=== PATIENT | female | born 1955 | race Caucasian/White ===

== ENCOUNTER 2022-01-24 09:42 | Emergency (ER) | payer OTHER ==
--- OUTSIDE RECORDS SUMMARY | 2022-01-24 09:46 | XMS REPORT | Continuity of Care Document ---
:1955 Author Organization [facility] t Address [address] [place] [address] Care Team Providers Name Role Phone UNKNOWN Attending Clinician Unavailable Claribel SIPHONER, J Attending Clinician Unknown Attending Clinician Unavailable Lab, Fam Pob I Attending Clinician Unavailable Green SIPHONER Attending Clinician GREEN Attending Clinician Unavailable Doctor Unassigned, Name Attending Clinician Unavailable Payers Payer Name Policy Type Policy Number Effective Date Expiration Date S ourrenetta [facility] - [id number] 2020 00:00:00 OUT OF STATE Problems Condition Condition Condition Status Onset Resolution Last Treating Co mments Source Name Details Category Date Date Treatment Clinician Date No known No known Disease Unive rs active active ity of problems problems [facility] Allergies, Adverse Reactions, Alerts Allergy Allergy Status Severity Reaction(s) Onset Inactive Treating Comm ents Source Name Type Date Date Clinician HYDROCOD DRUG Active High Hallucinates Un kelly ONE INGREDI 11-24 ity of 00:00: [place] [address] [place] [address] Branch Hydrocod Propensi Active Hallucinatio Univers one ty to ns 11-24 ity of adverse 00:00: [place] reaction 00 Medical s to Branch drug NO KNOWN Drug Active Univers ALLERGIE Class ity of S [facility] Social History Social Habit Start Date Stop Date Quantity Comments Source Exposure to Yes [facility] SARS-CoV-2 [facility] (event) Branch Sex Assigned At Universit y of [facility] Tobacco use and 2020-11-24 2020-11-24 Never used Universit y of exposure 00:00:00 00:00:00 [facility] Alcohol intake 2020-11-24 2020-11-24 Current drinker Unive rsity of 00:00:00 00:00:00 of alcohol [facility] (finding) Branch History SDOH 2020-11-24 2020-11-24 2 University o f Alcohol Frequency 00:00:00 00:00:00 [place] [facility] History SDOH 2020-11-24 2020-11-24 1 [place] o f Alcohol Std 00:00:00 00:00:00 [place] [facility] Branch History SDOH 2020-11-24 2020-11-24 1 [place] o f Alcohol Binge 00:00:00 00:00:00 [place] [facility] Branch Smoking Status Start Date Stop Date Source Unknown if ever smoked [facility] Never smoker [facility] Medications Ordered Filled Start Stop Current Ordering Indication Dosage Frequency Signature Comments Components Source Medication Medication Date Date Medication? Clinician (SIG) Name Name No known No Univers medications [facility] Vital Signs Vital Name Observation Time Observation Value Comments Source Systolic blood 2020-11-25 00:07:00 137 mm[Hg[facility] Diastolic blood 2020-11-25 00:07:00 85 mm[Hg] [facility] Heart rate 2020-11-25 00:07:00 78 /min [facility] Body temperature 2020-11-25 00:07:00 36.33 Yuli [facility] Respiratory rate 2020-11-25 00:07:00 15 /min [facility] Body height 2020-11-25 00:07:00 162.6 cm [facility] Body weight 2020-11-25 00:07:00 63.504 kg [facility] BMI 2020-11-25 00:07:00 24.03 kg/m2 [facility] Oxygen saturation in 2020-11-25 00:07:00 96 /min [facility] Arterial blood by [facility] Pulse oximetry Branch Procedures This patient has no known procedures. Encounters Start End Encounter Admission Attending Care Care Encounter Source Date/Time Date/Time Type Type Clinicians Facility Department ID 2020-11-24 2020-11-24 Outpatient R [facility] [id number] Univers 19:00:00 19:00:00 [id number] [facility] 2020-11-24 2020-11-24 Outpatient R UNKNOWN, [facility] [id number] Univers 19:00:00 19:00:00 ATTENDING [facility] 2020-11-24 2020-11-24 Urgent Teresa Sanford [facility] [id number] Univers 17:59:51 18:32:55 Care Unknown, Attending Health [id number] ity of [place] [id number] [place] as Professio [phone] [address] Office [address] One 2020-11-06 2020-11-06 Laboratory Lab, Adc Fam Pob I [facility] [id number]. [id number] Univers 11:42:51 12:22:51 Only Laura Ashley [facility] [id number] ity of [place] [id number] [place] as Professio [phone] [facility] [address] One 2020-11-06 2020-11-06 Outpatient R LONI [facility] [id number] Univers 11:40:00 11:40:00 LAURA ity of [facility] 2020-11-06 2020-11-06 Letter Doctor VIJAY [id number] Univers 00:00:00 00:00:00 (Out) Unassigned, NICO [id number] ity of [place] [facility] [id number] [place] as [phone] [address] Results This patient has no known results.
[2022-01-24] MEDS ORDERED: BUPIVACAINE 0.5% PF 10 ML VIAL ONE (10:34)
[2022-01-24] MEDS ORDERED: TETANUS & DIPHTHERIA TOX,ADULT 0.5 ML VIAL ONE (10:35)
[2022-01-24] MEDS ORDERED: LIDOCAINE 1% MPF 2 ML AMPULE ONE (10:35)
[2022-01-24] MEDS ORDERED: AMOX/K CLAV 875 MG TAB ONE (11:48)
--- NOTE | 2022-01-24 11:52 | EDPHYS ---
Physician Documentation [facility] Name: Rosie Hairston Age: 66 yrs Sex: Female : 1955 Arrival Date: 01/24/2022 Time: 09:44 Bed 18 Private MD: Rachelle Arias H ED Physician Christiano John HPI: 01/24 10:19 This 66 yrs old Female presents to ER via Ambulatory with complaints of Dog Bite, Lip jmm Injury. 10:19 The patient was bitten on the upper deric border. Onset: The symptoms/episode jmm began/occurred acutely, just prior to arrival. Secondary to the bite the patient reports This is a 66-year-old female no chronic medical conditions presents emerged part with a upper lip laceration which occurred after playing with her pet dog. Patient states that the dog snapped at her biting her upper lip. Denies any other injury. Patient is not up-to-date on tetanus immunizations.. Historical: - Allergies: 10:08 Codeine; ll1 - PMHx: 10:08 None; ll1 - PSHx: 10:08 section; ll1 - Immunization history:: Last tetanus immunization: < 10 years ago. - Social history:: Smoking status: Patient denies any tobacco usage or history of. ROS: 10:19 Constitutional: Negative for fever, chills, and weight loss, Cardiovascular: Negative jmm for chest pain, palpitations, and edema, Respiratory: Negative for shortness of breath, cough, wheezing, and pleuritic chest pain. 10:19 Skin: Positive for laceration(s). 10:19 All other systems are negative. Exam: 10:19 Constitutional: This is a well developed, well nourished patient who is awake, alert, jmm and in no acute distress. Head/Face: atraumatic. Eyes: EOMI, no conjunctival erythema appreciated ENT: Moist Mucus Membranes Neck: Trachea midline, Supple Chest/axilla: Normal chest wall appearance and motion. Cardiovascular: Regular rate and rhythm. No edema appreciated Respiratory: Normal respirations, no respiratory distress appreciated Abdomen/GI: Non distended, soft Back: Normal ROM 10:19 Skin: 0.5 cm laceration noted to the upper lip, crosses the vermilion border. 10:19 Neuro: Orientation: is normal, Mentation: is normal, Memory: is normal. 10:19 Psych: Behavior/mood is pleasant, cooperative. Vital Signs: 09:55 BP 144 / 78; Pulse 73; Resp 17; Temp 98.4; Pulse Ox 96% on R/A; Weight 68.49 kg; Height ll1 5 ft. 4 in. (162.56 cm); Pain 4/10; 12:04 BP 135 / 75; Pulse 81; Resp 17; Temp 98.5; Pulse Ox 97% ; bp 09:55 Body Mass Index 25.92 (68.49 kg, 162.56 cm) ll1 Laceration: 11:49 Wound Repair of .5cm ( 0.2in ) subcutaneous laceration to upper deric border. jmm Distal neuro/vascular/tendon intact. Anesthesia: Regional Block with 3 mls of 0.5% marcaine. Wound prep: Simple cleansing with betadine by me. Skin closed with 6 6-0 Prolene using simple sutures and sterile technique. Patient tolerated well. MDM: 10:19 Patient medically screened. [facility] 11:49 Data reviewed: vital signs, nurses notes. Counseling: I had a detailed discussion with ronnie the patient and/or guardian regarding: the historical points, exam findings, and any diagnostic results supporting the discharge/admit diagnosis, the need for outpatient follow up, to return to the emergency department if symptoms worsen or persist or if there are any questions or concerns that arise at home. ED course: Patient is alert nontoxic in appearance in the ED. Patient given wound infection return precautions. Patient understood agrees plan of care.. 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 Exp: bp 03/24/2023. Lot #: [id number]. } Route: IM; Site: left deltoid; 11:43 Follow up: Response: No adverse reaction bp 11:50 Drug: Augmentin (Amoxicillin-Clavulanate) 875 mg Route: PO; bp 12:04 Follow up: Response: No adverse reaction bp Disposition Summary: 01/24/22 11:51 Discharge Ordered Location: Home [facility] Condition: Stable jm Diagnosis - Dog bite of the upper lip [facility] Followup: [facility] - With: Camron Sewell MD - When: 2 - 3 days - Reason: Recheck today's complaints, Continuance of care, Re-evaluation by your physician Followup: [facility] - With: Camron Sewell MD - When: 5 - 6 days - Reason: Recheck today's complaints, Continuance of care, Staple/Suture removal, Re-evaluation by your physician Discharge Instructions: - Discharge Summary Sheet [facility] - Facial Laceration [facility] - Animal Bite, Adult [facility] Forms: - Medication Reconciliation Form [facility] - Thank You Letter [facility] - Antibiotic Education [facility] - Prescription Opioid Use [facility] Prescriptions: - Augmentin 875-125 mg Oral Tablet - take 1 tablet by ORAL route every 12 hours for 10 days; 20 tablet; Refills: 0, [facility] Product Selection Permitted - Polysporin (bacitracin zinc) - Apply to affected area 1 application by TOPICAL route 1-2 times daily; 1 tube; [facility] Refills: 0, Product Selection Permitted Addendum: 01/26/2022 05:29 Co-signature as Attending Physician, Christiano John MD I agree with the assessment and c travis plan of care. Signatures: Christiano John MD MD cha Mickail, Joel, PA PA [facility] Radames Sorto, MARY ALICE RN Brett Negrete RN RN ll1 Corrections: (The following items were deleted from the chart) 01/24 10:10 10:08 Allergies: No Known Allergies; ll1 ll1
--- NOTE | 2022-01-24 11:52 | ER ---
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 small ll1 lacerations noted to upper lip, bleeding controlled. Patients own dog she has had for over 6 years. Coronavirus screen: Vaccine status: Patient reports being unvaccinated. Client denies travel out of the [place] in the last 14 days. At this time, the client does not indicate any symptoms associated with coronavirus-19. Ebola Screen: Patient denies travel to an Ebola-affected area in the 21 days before illness onset. Initial Sepsis Screen: Does the patient meet any 2 criteria? No. Patient's initial sepsis screen is negative. Does the patient have a suspected source of infection? Yes: Skin breakdown/wound. Risk Assessment: Do you want to hurt yourself or someone else? Patient reports no desire to harm self or others. Onset of symptoms was January 24, 2022. 09:55 Method Of Arrival: Ambulatory 1 09:55 Acuity: KATHRYN 4 ll1 Triage Assessment: 10:10 Bite description: bite sustained to nose and mouth by a dog, animal information: ll1 Appearance: appeared well, is from animal, vaccination(s) is not up to date. General: Appears uncomfortable, Behavior is calm, cooperative, appropriate for age. Pain: Complains of pain in face Quality of pain is described as aching. EENT: Reports pain in nose and mouth. Derm: Wound noted mouth Reports pain. Historical: - Allergies: 10:08 Codeine; ll1 - PMHx: 10:08 None; ll1 - PSHx: 10:08 section; ll1 - Immunization history:: Last tetanus immunization: < 10 years ago. - Social history:: Smoking status: Patient denies any tobacco usage or history of. Screenin:15 Abuse screen: Denies threats or abuse. Denies injuries from another. Nutritional bp screening: No deficits noted. Tuberculosis screening: No symptoms or risk factors identified. Fall Risk None identified. Assessment: 10:15 General: SEE TRIAGE NOTE. bp 11:00 Derm: Skin is intact, is healthy with good turgor, Skin is pink, warm \T\ dry. bp 11:53 Reassessment: PT D/C HOME S/P DOG BITE WITH LAC REPAIR. bp Vital Signs: 09:55 BP 144 / 78; Pulse 73; Resp 17; Temp 98.4; Pulse Ox 96% on R/A; Weight 68.49 kg; Height ll1 5 ft. 4 in. (162.56 cm); Pain 4/10; 12:04 BP 135 / 75; Pulse 81; Resp 17; Temp 98.5; Pulse Ox 97% ; bp 09:55 Body Mass Index 25.92 (68.49 kg, 162.56 cm) ll1 ED Course: 09:44 Patient arrived in ED. am2 09:44 Rachelle Arias DO is Private Physician. am2 09:50 Arm band placed on Patient placed in an exam room, on a stretcher. ll1 10:01 Radames Sorto, MARY ALICE is Primary Nurse. bp 10:05 Juan Wen PA is PHCP. jmm 10:05 Christiano John MD is Attending Physician. [facility] 10:08 Triage completed. ll1 10:15 Patient has correct armband on for positive identification. Bed in low position. Call bp light in reach. Side rails up X2. 11:51 Camron Sewell MD is Referral Physician. [facility] 11:51 Referral Physician role handed off by Camron Sewell MD [facility] 11:51 Camron Sewell MD is Referral Physician. [facility] 11:52 Wound care: to laceration located on mouth was dressed with Neosporin, Patient bp tolerated well. 11:53 No provider procedures requiring assistance completed. Patient did not have IV access bp during this emergency room visit. 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 Exp: bp 03/24/2023. Lot #: [id number]. } Route: IM; Site: left deltoid; 11:43 Follow up: Response: No adverse reaction bp 11:50 Drug: Augmentin (Amoxicillin-Clavulanate) 875 mg Route: PO; bp 12:04 Follow up: Response: No adverse reaction bp Outcome: 11:51 Discharge ordered by . ronnie 11:53 Discharged to home ambulatory, with family. bp 11:53 Condition: stable 11:53 Discharge instructions given to patient, Instructed on discharge instructions, follow up and referral plans. medication usage, wound care, Demonstrated understanding of instructions, follow-up care, medications, wound care, Prescriptions given X 1. 12:05 Patient left the ED. 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 ll1 small lacerations noted to upper lip, bleeding controlled. Patients own dog she has had for over 6 years. States dog is not up to date with immunizations. ll1 10:10 10:08 Allergies: No Known Allergies; ll1 ll1
[2022-01-24 12:11] VITALS: BP 135/75; TEMP 98.5; O2SAT 97
== END 2022-01-24 12:05 | disposition home or self-care (01) ==
LOC: ER 09:42
PROC: 0CQ0XZZ Repair Upper Lip, External Approach (ICD-10-PCS; principal; 2022-01-24)
DX: S01.511A Laceration without foreign body of lip, initial encounter (principal); W54.0XXA Bitten by dog, initial encounter; Z23 Encounter for immunization; Z88.5 Allergy status to narcotic agent
CPT/HCPCS: 90471; 90714; 99283

== ENCOUNTER 2022-04-22 15:13 | Emergency (ER) | payer OTHER ==
[2022-04-22] MEDS ORDERED: NA CHLORIDE 0.9% 1,000 ML ONE (15:37)
[2022-04-22 15:55] LABS: Hematocrit 46.2 % (36.0-45.0); Lymphocytes % 41.8 % (15.3-44.8); MPV 8.1 fL (7.6-11.3); RBC Red Blood Cell Count 5.18 M/uL (3.86-4.86)
--- NOTE | 2022-04-22 16:05 | RAD REPORT ---
EXAM DESCRIPTION: RAD - Chest Single View - 04/22/2022 3:59 pm CLINICAL HISTORY: CHEST PAIN COMPARISON: No comparisons FINDINGS: Lines: None. Lungs: No evidence of edema or pneumonia. Pleural: No significant pleural effusions or pneumothorax. Cardiac: The heart size is within normal limits. Bones: No acute fractures. Other: IMPRESSION: No acute cardiopulmonary disease.
[2022-04-22 16:07] LABS: Protime INR 0.9
--- NOTE | 2022-04-22 16:15 | RAD REPORT ---
EXAM DESCRIPTION: CT - Head Brain Wo Cont - 04/22/2022 4:05 pm CLINICAL HISTORY: Generalized weakness COMPARISON: No comparisons TECHNIQUE: All CT scans are performed using dose optimization technique as appropriate and may inclu de automated exposure control or mA/KV adjustment according to patient size. FINDINGS: No intracranial hemorrhage, hydrocephalus or extra-axial fluid collection.No areas of brai n edema or evidence of midline shift. The paranasal sinuses and mastoids are clear. The calvarium is intact. IMPRESSION: No acute intracranial abnormality.
[2022-04-22 16:28] LABS: ALT/SGPT 39 U/L (12-78); AST/SGOT 18 U/L (15-37); Albumin 4.3 g/dL (3.4-5.0); Alkaline Phosphatase 61 U/L (45-117); BUN Blood Urea Nitrogen 12 mg/dL (7-18); Bicarbonate 22 mmol/L (21-32); Bilirubin Total 0.3 mg/dL (0.2-1.0); Creatine Phosphokinase 173 U/L (26-192); Glomerular Filtration Rate 49 ml/min (=/>90); Glucose Level 105 mg/dL (74-106); Magnesium 2.4 mg/dL (1.8-2.4); NT PRO-BNP 103 pg/mL (<125); Potassium 3.5 mmol/L (3.5-5.1); Protein, Total 8.6 g/dL (6.4-8.2); Sodium Level 140 mmol/L (136-145); Troponin High Sensitivity 4.8 pg/mL (<58.9)
[2022-04-22 16:29] LABS: Bilirubin Direct < 0.1 mg/dL (0-0.2)
[2022-04-22 17:08] LABS: Urine Blood Trace-intact (Negative); Urine Glucose Negative (Negative); Urine Protein Negative (Negative); Urine pH 7.5 (5.0-7.0)
[2022-04-22 17:25] LABS: Barbiturates NEGATIVE (NEGATIVE); Benzodiazepines NEGATIVE (NEGATIVE); Cocaine NEGATIVE (NEGATIVE); METHAMPHETAM NEGATIVE (NEGATIVE); Methadone NEGATIVE (NEGATIVE); Opiates NEGATIVE (NEGATIVE); Phencyclidine NEGATIVE (NEGATIVE); THC Cannibis NEGATIVE (NEGATIVE)
--- NOTE | 2022-04-22 18:18 | ER ---
Nurse's Notes [facility] Name: Rosie Hairston Age: 66 yrs Sex: Female : 1955 Arrival Date: 04/22/2022 Time: 15:14 Bed 4 Private MD: Rachelle Arias H Diagnosis: Dehydration;Acute stress reaction Presentation: 04/22 15:24 Onset of symptoms was April 21, 2022. 9 15:24 Acuity: KATHRYN 3 [facility] 15:25 Chief complaint: Patient states: Weak, shaky, slumping over in chair, hyperventilating. jg9 [place] moving [place] and has been packing and moving recently with added emotional stress. Coronavirus screen: Vaccine status: Patient reports being unvaccinated. Client denies travel out of the [place] in the last 14 days. At this time, the client does not indicate any symptoms associated with coronavirus-19. Ebola Screen: Patient denies travel to an Ebola-affected area in the 21 days before illness onset. Initial Sepsis Screen: Does the patient meet any 2 criteria? No. Patient's initial sepsis screen is negative. Does the patient have a suspected source of infection? No. Patient's initial sepsis screen is negative. Risk Assessment: Do you want to hurt yourself or someone else? Patient reports no desire to harm self or others. 15:25 Method Of Arrival: Wheelchair j9 Historical: - Allergies: 15:24 Codeine; jg9 - PMHx: 15:24 None; jg9 - PSHx: 15:24 section; jg9 - Immunization history:: Client reports having NOT received the Covid vaccine. - Social history:: Smoking status: Patient reports the use of cigarette tobacco products, smokes one-half pack cigarettes per day. Screenin:29 Abuse screen: Denies threats or abuse. Denies injuries from another. Nutritional travis screening: No deficits noted. Tuberculosis screening: No symptoms or risk factors identified. Fall Risk None identified. Assessment: 15:28 General: Appears distressed, Behavior is anxious. Pain: Denies pain. Neuro: No deficits travis noted. Level of Consciousness is awake, alert, obeys commands, Oriented to person, place, time. Derm: Skin is pink, Skin temperature is warm. Vital Signs: 15:25 BP 164 / 79; Pulse 104; Resp 26; Temp 97.7; Pulse Ox 98% on R/A; Weight 65.77 kg; jg9 Height 5 ft. 4 in. (162.56 cm); 16:43 BP 106 / 51; Pulse 79; Resp 17; Pulse Ox 97% ; travis 15:25 Body Mass Index 24.89 (65.77 kg, 162.56 cm) j9 ED Course: 15:14 Patient arrived in ED. as 15:15 Rachelle Arias DO is Private Physician. as 15:16 [facility] Cummins [facility] pm1 15:16 Caio Hernandes MD is Attending Physician. pm1 15:24 Arm band placed on Patient placed in an exam room, on a stretcher. jg9 15:24 Inserted saline lock: 20 gauge in right antecubital area, using aseptic technique. ss Patient maintains SpO2 saturation greater than 95% on room air. 15:25 Triage completed. jg9 15:28 Yessi García, MARY ALICE is Primary Nurse. travis 15:29 Patient has correct armband on for positive identification. Bed in low position. travis 15:29 No provider procedures requiring assistance completed. travis 16:01 XRAY Chest (1 view) In Process Unspecified. EDMS 16:06 CT Head Brain wo Cont In Process Unspecified. EDMS 18:53 IV discontinued, intact, Pressure dressing applied. travis Administered Medications: 15:34 Drug: NS 0.9% 1000 ml Route: IV; Rate: 1000 ml; Site: right antecubital; Medication: 15:30 VIS not applicable for this client. travis Outcome: 18:17 Discharge ordered by . pm1 18:53 Discharged to home ambulatory, with family. travis 18:53 Condition: good 18:53 Discharge instructions given to patient, family. 18:53 Patient left the ED. travis Signatures: Dispatcher [employer] EDMS Clarissa Iverson Shelby, RN RN ss Junior Cummins NP BROADCAST PRODUCER pm1 Leslie Painter RN RN jg9 Yessi García RN RN travis
--- NOTE | 2022-04-22 18:18 | EDPHYS ---
Physician Documentation [facility] Name: Rosie Hairston Age: 66 yrs Sex: Female : 1955 Arrival Date: 04/22/2022 Time: 15:14 Bed 4 Private MD: Rachelle Arias H ED Physician Caio Hernandes HPI: 04/22 15:38 This 66 yrs old Female presents to ER via Wheelchair with complaints of Heat Exposure, pm1 Anxiety. 15:38 Possible heat exposure and anxiety due to moving from [place] after the [employer] pm1 bought her house to create a freeway. Onset: The symptoms/episode began/occurred today. Severity of symptoms: in the emergency department the symptoms are worse. The patient has not experienced similar symptoms in the past. The patient has not recently seen a physician. 66-year-old patient presents to the ER with complaints of anxiety and possible heat exposure from her move from [place] to [place]. Patient reports working on packing her home for the past [address] here on . Significant other reports that she has been exhausted since arriving here on , slept the whole day and then woke up and then slept 22 hours straight, waking up today fine but then started having general complaints of anxiety and generalized weakness. Historical: - Allergies: 15:24 Codeine; jg9 - PMHx: 15:24 None; jg9 - PSHx: 15:24 section; jg9 - Immunization history:: Client reports having NOT received the Covid vaccine. - Social history:: Smoking status: Patient reports the use of cigarette tobacco products, smokes one-half pack cigarettes per day. ROS: 15:38 Constitutional: Negative for fever, chills, and weight loss, Cardiovascular: Negative pm1 for chest pain, palpitations, and edema, Respiratory: Negative for shortness of breath, cough, wheezing, and pleuritic chest pain, Abdomen/GI: Negative for abdominal pain, nausea, vomiting, diarrhea, and constipation, Back: Negative for injury and pain, MS/Extremity: Negative for injury and deformity, Skin: Negative for injury, rash, and discoloration. 15:38 Neuro: Positive for weakness. 15:38 Psych: Positive for anxiety. 15:38 All other systems are negative. Exam: 15:38 Constitutional: This is a well developed, well nourished patient who is awake, alert, pm1 and in no acute distress. Head/Face: Normocephalic, atraumatic. 15:38 Back: No spinal tenderness. No costovertebral tenderness. Full range of motion. Skin: Warm, dry with normal turgor. Normal color with no rashes, no lesions, and no evidence of cellulitis. MS/ Extremity: Pulses equal, no cyanosis. Neurovascular intact. Full, normal range of motion. 15:38 Eyes: Exam is negative for acute changes, Periorbital structures: appear normal, Extraocular movements: no acute changes. 15:38 ENT: Exam is negative for acute changes, Mouth: no acute changes, Lips: normal, moist, Oral mucosa: normal, pink and intact, moist. 15:38 Cardiovascular: Exam negative for acute changes, Rate: normal, Rhythm: regular, Pulses: no pulse deficits are appreciated, Heart sounds: normal. 15:38 Respiratory: Exam negative for acute changes, respiratory distress, shortness of breath. 15:38 Abdomen/GI: Inspection: abdomen appears normal, Palpation: abdomen is soft and non-tender, in all quadrants. 15:38 Neuro: Exam negative for acute changes, Motor: is normal, moves all fours. Vital Signs: 15:25 BP 164 / 79; Pulse 104; Resp 26; Temp 97.7; Pulse Ox 98% on R/A; Weight 65.77 kg; jg9 Height 5 ft. 4 in. (162.56 cm); 16:43 BP 106 / 51; Pulse 79; Resp 17; Pulse Ox 97% ; travis 15:25 Body Mass Index 24.89 (65.77 kg, 162.56 cm) jg9 MDM: 15:25 Patient medically screened. pm1 15:58 ED course: Patient calmed down but with hyperventilation episode with discussion of her pm1 move from [place] leaving baby clothing behind since her children did not want them. 18:15 Data reviewed: vital signs. Data interpreted: Pulse oximetry: on room air is 97 %. pm1 Interpretation: normal. 18:15 Counseling: I had a detailed discussion with the patient and/or guardian regarding: the pm1 historical points, exam findings, and any diagnostic results supporting the discharge/admit diagnosis, lab results, radiology results, the need for outpatient follow up, to return to the emergency department if symptoms worsen or persist or if there are any questions or concerns that arise at home, Patient felling better and would like to go home. Patient feels better after IV fluids. Impression is mild dehydration with acute stress reaction. 04/22 15:26 Order name: Basic Metabolic Panel 04/22 15:26 Order name: CBC with Diff; Complete Time: 15:59 pm04/22 15:26 Order name: LFT's 04/22 15:26 Order name: Magnesium 04/22 15:26 Order name: NT PRO-BNP 04/22 15:26 Order name: PT-INR; Complete Time: 16:18 pm04/22 15:26 Order name: Troponin HS 04/22 15:26 Order name: Acetaminophen 04/22 15:26 Order name: ETOH Level; Complete Time: 16:40 pm04/22 15:26 Order name: Ptt, Activated; Complete Time: 16:18 pm04/22 15:26 Order name: Salicylate; Complete Time: 16:40 pm04/22 15:26 Order name: Urine Drug Screen; Complete Time: 17:36 pm04/22 15:26 Order name: CPK 04/22 15:36 Order name: Glucose, Ancillary Testing; Complete Time: 15:38 EDMS 04/22 15:26 Order name: XRAY Chest (1 view); Complete Time: 16:18 pm04/22 15:26 Order name: EKG; Complete Time: 15:27 pm04/22 15:26 Order name: Cardiac monitoring; Complete Time: 15:41 pm04/22 15:26 Order name: EKG - Nurse/Tech; Complete Time: 15:55 pm04/22 15:26 Order name: IV Saline Lock; Complete Time: 15:29 pm04/22 15:26 Order name: Labs collected and sent; Complete Time: 15:29 pm04/22 15:26 Order name: O2 Per Protocol; Complete Time: 15:29 pm04/22 15:26 Order name: O2 Sat Monitoring; Complete Time: 15:29 pm04/22 15:26 Order name: Urine Dipstick-Ancillary (obtain specimen); Complete Time: 17:07 pm1 04/22 15:42 Order name: CT Head Brain wo Cont; Complete Time: 16:18 pm1 04/22 17:09 Order name: Urine Dipstick-Ancillary; Complete Time: 17:16 EDMS Administered Medications: 15:34 Drug: NS 0.9% 1000 ml Route: IV; Rate: 1000 ml; Site: right antecubital; Disposition Summary: 04/22/22 18:17 Discharge Ordered Location: Home pm1 Problem: new pm1 Symptoms: have improved pm1 Condition: Stable pm1 Diagnosis - Dehydration pm1 - Acute stress reaction pm1 Followup: pm1 - With: Emergency Department - When: As needed - Reason: Worsening of condition Followup: pm1 - With: Private Physician - When: 2 - 3 days - Reason: Recheck today's complaints, Continuance of care, Re-evaluation by your physician Discharge Instructions: - Discharge Summary Sheet pm1 - Dehydration, Adult pm1 - Stress, Adult pm1 - Rehydration, Adult pm1 Forms: - Medication Reconciliation Form pm1 - Thank You Letter pm1 - Antibiotic Education pm1 - Prescription Opioid Use pm1 Signatures: Dispatcher [employer] EDMS Fernanda Baker, RN RN ss Junior Cummins, [employer] pm1 Leslie Painter RN RN jg9
[2022-04-22 19:19] VITALS: TEMP 97.7
[2022-04-22 19:21] VITALS: BP 106/51; O2SAT 97
--- NOTE | 2022-04-23 11:51 | EKG ---
Test Date: 2022-04-22 Test Time: 15:47:28 Flash Drier Operator: ANGEL MEASUREMENT RESULTS: Intervals: Rate: 77 [place]: 158 QRSD: 130 QT: 430 QTc: 486 [place]: P: 43 [place]: 158 QRS: -20 T: 98 INTERPRETIVE STATEMENTS: Normal sinus rhythm Left bundle branch block Abnormal ECG No previous ECG available for comparison Electronically Signed On 04-23-22 11:50:10 CDT by Brett Steiner
== END 2022-04-22 18:53 | disposition home or self-care (01) ==
LOC: ER 15:13
DX: F43.0 Acute stress reaction (principal); E86.0 Dehydration; F17.210 Nicotine dependence, cigarettes, uncomplicated; Z88.5 Allergy status to narcotic agent
CPT/HCPCS: 93005; 85025; 80048; 36415; 80320; 83735; 82550; 80329 ×2; 85610; 82947; 80076; 85730; 81003; 84484; 83880; 80307; 70450; 71045; J7030

== ENCOUNTER 2023-07-08 11:55 | Observation (INO) | payer OTHER ==
[2023-07-08] MEDS ORDERED: NA CHLORIDE 0.9% 2,000 ML ONE (12:27)
[2023-07-08] MEDS ORDERED: METOCLOPRAMIDE 10 MG/2mL INJ ONE (12:27)
[2023-07-08 12:38] LABS: Hematocrit 41.4 % (36.0-45.0); MCV 89.9 fL (80-100); MPV 7.2 fL (7.6-11.3); Platelets 294 thou/uL (152-406)
[2023-07-08 12:39] LABS: Absolute Lymphocytes (CBC) 1.8 K/uL (0.7-4.9); Lymphocytes % 34.9 % (15.3-44.8)
[2023-07-08 12:41] LABS: Protime INR 0.95
--- NOTE | 2023-07-08 12:42 | RAD REPORT ---
EXAM DESCRIPTION: CT - Head Brain Wo Cont - 07/08/2023 12:16 pm CLINICAL HISTORY: Syncope COMPARISON: 2021 TECHNIQUE: Computed axial tomography of the head was obtained. IV contrast was not requested. All CT scans are performed using dose optimization technique as appropriate and may include automated exposure control or mA/KV adjustment according to patient size. FINDINGS: An intracranial bleed is not seen The ventricles are normal in caliber No extra-axial fluid collection is noted. Mild low-density areas within periventricular, deep and subcortical white matter likely represent isc hemic changes secondary to small vessel disease. Empty sella turcica Fluid within the sinuses/ mastoids is not seen. IMPRESSION: No acute intracranial abnormality is seen If patient's symptoms persist MRI of the brain would be recommended
--- NOTE | 2023-07-08 12:47 | RAD REPORT ---
EXAM DESCRIPTION: Bob Single View07/08/2023 12:30 pm CLINICAL HISTORY: Chest pain COMPARISON: 2021 FINDINGS: The lungs appear clear of acute infiltrate. The heart is normal size IMPRESSION: No acute abnormalities displayed
[2023-07-08 13:03] LABS: ALT/SGPT 31 U/L (13-56); AST/SGOT 17 U/L (15-37); Albumin 3.8 g/dL (3.4-5.0); Alkaline Phosphatase 60 U/L (45-117); BUN Blood Urea Nitrogen 12 mg/dL (7-18); Bicarbonate 20 mEq/L (21-32); Bilirubin Direct 0.1 mg/dL (0-0.2); Bilirubin Indirect, Calculated 0.2 mg/dL (0.2-0.8); Bilirubin Total 0.3 mg/dL (0.2-1.0); Glomerular Filtration Rate 52 ml/min (=/>90); Glucose Level 111 mg/dL (74-106); Magnesium 2.1 mg/dL (1.6-2.4); NT PRO-BNP 42 pg/mL (<125); Potassium 3.4 mEq/L (3.5-5.1); Protein, Total 7.4 g/dL (6.4-8.2); Sodium Level 140 mEq/L (136-145)
[2023-07-08 13:04] LABS: C-Reactive Protein < 2.90 mg/L (<3.00)
[2023-07-08 14:21] LABS: Specific Gravity < 1.005 (1.005-1.030); Urine Bacteria None Seen /HPF (<20); Urine Bilirubin NEGATIVE (Negative); Urine Blood Negative (Negative); Urine Clarity Turbid (Clear); Urine Color Colorless (Yellow); Urine Glucose NEGATIVE (Negative); Urine Protein NEGATIVE (Negative); Urine RBC <5 /HPF (None Seen); Urine Urobilinogen Normal (Normal)
--- NOTE | 2023-07-08 14:32 | EDPHYS ---
Physician Documentation [facility] [place] Name: Rosie Hairston Age: 68 yrs Sex: Female : 1955 Arrival Date: 07/08/2023 Time: 11:55 Bed 6 Private MD: ED Physician Jose Alejandro Palacios HPI: 07/08 12:04 This 68 yrs old Female presents to ER via Unassigned with complaints of sp4 Weakness, Near Syncope. 14:23 68-year-old female presents with EMS for syncopal episode at home. Patient states for 1 sp4 week she has been feeling very unwell, generalized weakness periodic chest pains dyspnea, she has manifested with worsening weakness today she has collapsed on the floor and had a convulsive type episode witnessed by her . Convulsive episode was described as brief. Patient states her health has been in good order, she is not on any medications at home, she will 1 pack/day smoker, she is retired, not exposed to any noxious chemicals. She denied alcohol or drug abuse. . Historical: - Allergies: 11:58 Codeine; ll1 - PMHx: 11:58 None; ll1 - PSHx: 11:58 section; ll1 - Immunization history:: Adult Immunizations up to date. - Social history:: Smoking status: Patient denies any tobacco usage or history of. - Family history:: not pertinent. ROS: 14:23 Constitutional: Negative for fever, chills, and weight loss, positive for generalized sp4 weakness, fatigue, loss of energy, dizziness, syncope Cardiovascular: Negative for palpitations, and edema, positive for chest pains and shortness of breath that her episodic 14:23 All other systems are negative. Exam: 14:07 ECG was reviewed by the Attending Physician. There is EKG at 1209, there is normal sp4 sinus rhythm, left axis deviation, left bundle branch block. No ectopy, no sign of STEMI . EKG rate 69 bpm 14:23 Constitutional: This is a well developed, well nourished patient who is awake, alert, sp4 ill-appearing but nontoxic Head/Face: Normocephalic, atraumatic. Eyes: Pupils equal round and reactive to light, extra-ocular motions intact. Lids and lashes normal. Conjunctiva and sclera are not injected. Cornea within normal limits. Periorbital areas with no swelling, redness, or edema. ENT: Nares patent. No nasal discharge, no septal abnormalities noted. Tympanic membranes are normal and external auditory canals are clear. Oropharynx with no redness, swelling, or masses, exudates, or evidence of obstruction, uvula midline. Mucous membranes moist. Neck: Trachea midline, no thyromegaly or masses palpated, and no cervical lymphadenopathy. Supple, full range of motion without nuchal rigidity, or vertebral point tenderness. Chest/axilla: Normal chest wall appearance and motion. Nontender with no deformity. No lesions are appreciated. Cardiovascular: Regular rate and rhythm with a normal S1 and S2. No gallops, murmurs, or rubs. Normal PMI, no JVD. No pulse deficits. Respiratory: Lungs have equal breath sounds bilaterally, clear to auscultation and percussion. No rales, rhonchi or wheezes noted. No increased work of breathing, no retractions or nasal flaring. Abdomen/GI: Soft, non-tender, with normal bowel sounds. No distension or tympany. No guarding or rebound. No evidence of tenderness throughout. Back: No spinal tenderness. No costovertebral tenderness. Skin: Warm, dry with normal turgor. Normal color with no rashes, no lesions, and no evidence of cellulitis. MS/ Extremity: Pulses equal, no cyanosis. Neurovascular intact. Full, normal range of motion. Neuro: Awake and alert, GCS 15, oriented to person, place, time, and situation. Cranial nerves II-XII grossly intact. Motor strength 5/5 in all extremities. Sensory grossly intact. Psych: Awake, alert, with orientation to person, place and time. Behavior, mood, and affect are within normal limits Vital Signs: 12:12 BP 125 / 76; Pulse 65; Resp 16; Temp 98.5; Pulse Ox 100% ; Weight 77.11 kg; Height 5 mb9 ft. 5 in. ; Pain 0/10; 15:08 BP 127 / 78; Pulse 58; Resp 18; Pulse Ox 98% on R/A; ld1 15:15 BP 133 / 62; Pulse 62; Resp 16; Pulse Ox 100% on R/A; mb9 16:04 BP 117 / 62; Pulse 60; Resp 18; Pulse Ox 93% on R/A; ld1 17:03 BP 121 / 70; Pulse 63; Resp 18; Pulse Ox 98% on R/A; ld1 17:52 BP 119 / 64; Pulse 52; Resp 18; Pulse Ox 99% on R/A; ld1 12:12 Body Mass Index 28.29 (77.11 kg, 165.1 cm) mb9 12:12 Pain Scale: Adult mb9 NIH Stroke Scale Scores: 14:23 NIHSS Score: 0 sp4 [place] Score: 14:23 Eye Response: spontaneous(4). Motor Response: obeys commands(6). Verbal Response: sp4 oriented(5). Total: 15. MDM: 12:06 Patient medically screened. sp4 14:27 Data reviewed: vital signs, nurses notes, EMS record, lab test result(s), cardiac sp4 enzymes, CBC, hepatic panel, urinalysis, urine drug screen, EKG, radiologic studies, CT scan, plain films. Consideration of Admission/Observation Patient was admitted/placed on observation. Escalation of care including admission/observation considered. Management of patient was discussed with the following: Hospitalist: Discussed with admission team. . Campaign Director: Discussed with neurologist. ED course: CBC today reveals normal results, CMP reveals potassium 3.4, glucose 111, creatinine 1.15 LFTs normal, C-reactive protein is normal, BNP is normal, coags normal, TSH normal, chest x-ray reveals no acute abnormality, CT head reveals no acute intracranial pathology,. Patient says family history positive for myasthenia gravis, systemic lupus erythematosus, and multiple sclerosis -patient's daughter is positive for myasthenia gravis, systemic lupus erythematosus, and multiple sclerosis. . ED course: At this time patient warrants admission for work-up of syncope, episodic chest pains, possible new onset seizures. Neurologist was made aware he reports that EEG machine is out of order. MRI is available for patient evaluation. 07/08 12:05 Order name: Basic Metabolic Panel; Complete Time: 13:56 sp4 07/08 12:05 Order name: CBC with Diff; Complete Time: 13:56 sp4 07/08 12:05 Order name: LFT's; Complete Time: 13:56 sp4 07/08 12:05 Order name: Magnesium; Complete Time: 13:56 sp4 07/08 12:05 Order name: NT PRO-BNP; Complete Time: 13:56 sp4 07/08 12:05 Order name: PT-INR; Complete Time: 13:56 sp4 07/08 12:05 Order name: Troponin HS; Complete Time: 13:56 sp4 07/08 12:06 Order name: TSH; Complete Time: 13:56 sp4 07/08 12:06 Order name: T4 Free; Complete Time: 13:56 sp4 07/08 12:06 Order name: CRP; Complete Time: 13:56 sp4 07/08 12:06 Order name: Alcohol Level; Complete Time: 13:56 sp4 07/08 12:06 Order name: Urinalysis W/Microscopic; Complete Time: 15:05 sp4 07/08 14:16 Order name: Urine Drug Screen sp4 07/08 15:27 Order name: Magnesium EDMS 07/08 15:27 Order name: Phosphorus EDMS 07/08 15:27 Order name: Protime (+INR) EDMS 07/08 15:27 Order name: Thyroid Stimulating Hormone EDMS 07/08 15:27 Order name: Urinalysis w/ reflexes EDMS 07/08 15:27 Order name: Basic Metabolic Panel EDMS 07/08 15:27 Order name: Basic Metabolic Panel EDMS 07/08 15:27 Order name: CBC with Automated Diff EDMS 07/08 15:27 Order name: CBC with Automated Diff EDMS 07/08 15:27 Order name: Lipid Profile EDMS 07/08 15:27 Order name: Lipid Profile EDMS 07/08 17:03 Order name: Hemoglobin A1c EDMS 07/08 12:05 Order name: XRAY Chest (1 view); Complete Time: 13:56 sp4 07/08 12:05 Order name: CT Head Brain wo Cont; Complete Time: 13:56 sp4 07/08 15:20 Order name: Brain W/Wo Cont EDMS 07/08 12:05 Order name: EKG; Complete Time: 12:06 sp4 07/08 15:27 Order name: Regular EDMS 07/08 12:05 Order name: Cardiac monitoring; Complete Time: 12:07 sp4 07/08 12:05 Order name: EKG - Nurse/Tech; Complete Time: 12:10 sp4 07/08 12:05 Order name: IV Saline Lock; Complete Time: 12:07 sp4 07/08 12:05 Order name: Labs collected and sent; Complete Time: 12:38 sp4 07/08 12:05 Order name: O2 Per Protocol; Complete Time: 12: sp4 07/08 12:05 Order name: O2 Sat Monitoring; Complete Time: 12: sp4 EC:07 Rate is 69 beats/min. Rhythm is regular, Sinus Rhythm. Left axis deviation noted. VT sp4 interval is normal. No ST changes noted. Clinical impression: No evidence of ischemia. Interpreted by me. Administered Medications: 12:25 Drug: NS 0.9% IV 1000 ml Route: IV; Rate: 1 bolus; Site: left antecubital; mb9 18:17 Follow up: Response: No adverse reaction; IV Status: Completed infusion mb9 12:25 Drug: NS 0.9% IV 1000 ml Route: IV; Rate: 125 ml/hr; Site: left antecubital; mb9 18:18 Follow up: Response: No adverse reaction; IV Status: Completed infusion mb9 12:30 Drug: metoCLOPramide IVP 10 mg Route: IVP; Site: left antecubital; mb9 15:27 Follow up: Response: No adverse reaction mb9 Disposition Summary: 07/08/23 14:32 Hospitalization Ordered Hospitalization Status: Inpatient Admission sp4 Provider: Caio Bhardwaj [facility] sp4 Condition: Fair sp4 Problem: new sp4 Symptoms: have improved sp4 Bed/Room Type: Standard sp4 Room Assignment: 230(07/08/23 17:14) ds4 Diagnosis - Other seizures sp4 - Syncope and collapse, atypical chest pain, dyspnea, new onset seizure sp4 Forms: - Medication Reconciliation Form sp4 - SBAR form sp4 - Leadership Thank You Letter sp4 NIH Stroke Scale - NIH Stroke Score Date: 07/08/2023 Time: : Total Score = 0 10. Dysarthria (speech clarity - read or repeat words) - 0(Normal) 11. Extinction and Inattention (visual/tactile/auditory/spatial/personal) - 0(No abnormality) 1a. Level of Consciousness (LOC) - 0(Alert) 1b. Level of Consciousness (LOC) (Month \T\ Age) - 0(Both) 1c. LOC Commands (Open \T\ Closes Eyes/Color Room Attendant) - 0(Both) 2. Best Gaze (Lateral Gaze Paresis) - 0(Normal) 3. Visual Field Loss - 0(No visual loss) 4. Facial Palsy - 0(Normal) 5a. Left Arm: Motor (10-second hold) - 0(No drift) 5b. Right Arm: Motor (10-second hold) - 0(No drift) 6a. Left Leg: Motor (5-second hold - always test supine) - 0(No drift) 6b. Right Leg: Motor (5-second hold - always test supine) - 0(No drift) 7. Limb Ataxia (finger/nose \T\ heel/edmond - test with eyes open) - 0(Absent) 8. Sensory Loss (pinprick arms/legs/face) - 0(Normal) 9. Best Language: Aphasia (description/naming/reading) - 0(No aphasia) Initials: sp4 Signatures: Dispatcher [employer] EDCompa Wolfe ds4 Brett Hargrove RN RN ll1 Asuncion James RN RN mb9 Jose Alejandro Palacios MD MD sp4 Corrections: (The following items were deleted from the chart) 17:14 14:32 sp4 ds4
--- NOTE | 2023-07-08 14:32 | ER ---
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 Found hyperventilating on scene with carpal spasms and SOB. Has arm tingling and chest pressure. EMS states: VSS, fingerstick 140. 20 G L AC. Coronavirus screen: Client denies travel out of the [place] in the last 14 days. Ebola Screen: Patient denies travel to an Ebola-affected area in the 21 days before illness onset. Initial Sepsis Screen: Does the patient meet any 2 criteria? No. Patient's initial sepsis screen is negative. Does the patient have a suspected source of infection? No. Patient's initial sepsis screen is negative. Risk Assessment: Do you want to hurt yourself or someone else? Patient reports no desire to harm self or others. Onset of symptoms was July 08, 2023. 12:04 Method Of Arrival: EMS ll1 12:04 Acuity: KATHRYN 2 ll1 Historical: - Allergies: 11:58 Codeine; ll1 - PMHx: 11:58 None; ll1 - PSHx: 11:58 section; ll1 - Immunization history:: Adult Immunizations up to date. - Social history:: Smoking status: Patient denies any tobacco usage or history of. - Family history:: not pertinent. Screenin:37 [facility] ED Fall Risk Assessment (Adult) History of falling in the last 3 months, mb9 including since admission No falls in past 3 months (0 pts) Confusion or Disorientation No (0 pts) Intoxicated or Sedated No (0 pts) Impaired Gait No (0 pts) Mobility Assist Device Used No (0 pt) Altered Elimination No (0 pt) Score/Fall Risk Level 0 - 2 = Low Risk Oriented to surroundings, Maintained a safe environment, Educated pt \T\ family on fall prevention, incl call for assistance when getting out of bed. Abuse screen: Denies threats or abuse. Nutritional screening: No deficits noted. Tuberculosis screening: No symptoms or risk factors identified. Assessment: 12:35 General: Appears in no apparent distress. Behavior is anxious. Pain: Denies pain. mb9 Neuro: Velazquez Agitation-Sedation Scale (RASS): 0 - Alert and Calm Level of Consciousness is awake, alert, obeys commands, Oriented to person, place, time, situation, Appropriate for age Medical Collections Specialist are equal bilaterally Moves all extremities. Speech is normal, Facial symmetry appears normal, Pupils are PERRLA, Intact Reports weakness in right arm, left arm, right leg and left leg since the past month. Cardiovascular: Heart tones S1 S2 present Patient's skin is warm and dry. Rhythm is regular. Respiratory: Airway is patent Respiratory effort is even, unlabored, Respiratory pattern is regular, symmetrical, Breath sounds are clear bilaterally. Denies cough, shortness of breath. GI: Abdomen is round non-distended, Bowel sounds present X 4 quads. Abd is soft and non tender X 4 quads. Reports nausea. : No signs and/or symptoms were reported regarding the genitourinary system. EENT: No signs and/or symptoms were reported regarding the EENT system. Derm: Skin is pink, warm \T\ dry. Musculoskeletal: Range of motion: intact in all extremities. 13:35 Reassessment: No changes from previously documented assessment. Patient and/or family mb9 updated on plan of care and expected duration. Pain level reassessed. Patient is alert, oriented x 3, equal unlabored respirations, skin warm/dry/pink. 14:35 Reassessment: No changes from previously documented assessment. Patient and/or family mb9 updated on plan of care and expected duration. Pain level reassessed. Patient is alert, oriented x 3, equal unlabored respirations, skin warm/dry/pink. 15:35 Reassessment: No changes from previously documented assessment. Patient and/or family mb9 updated on plan of care and expected duration. Pain level reassessed. Patient is alert, oriented x 3, equal unlabored respirations, skin warm/dry/pink. 16:35 Reassessment: No changes from previously documented assessment. Patient and/or family mb9 updated on plan of care and expected duration. Pain level reassessed. Patient is alert, oriented x 3, equal unlabored respirations, skin warm/dry/pink. Vital Signs: 12:12 BP 125 / 76; Pulse 65; Resp 16; Temp 98.5; Pulse Ox 100% ; Weight 77.11 kg; Height 5 mb9 ft. 5 in. ; Pain 0/10; 15:08 BP 127 / 78; Pulse 58; Resp 18; Pulse Ox 98% on R/A; ld1 15:15 BP 133 / 62; Pulse 62; Resp 16; Pulse Ox 100% on R/A; mb9 16:04 BP 117 / 62; Pulse 60; Resp 18; Pulse Ox 93% on R/A; ld1 17:03 BP 121 / 70; Pulse 63; Resp 18; Pulse Ox 98% on R/A; ld1 17:52 BP 119 / 64; Pulse 52; Resp 18; Pulse Ox 99% on R/A; ld1 12:12 Body Mass Index 28.29 (77.11 kg, 165.1 cm) mb9 12:12 Pain Scale: Adult mb9 [place] Score: 14:23 Eye Response: spontaneous(4). Motor Response: obeys commands(6). Verbal Response: sp4 oriented(5). Total: 15. NIH Stroke Scale Scores: 14:23 NIHSS Score: 0 sp4 ED Course: 11:55 Arm band placed on Patient placed in an exam room, on a stretcher. ll1 11:58 Patient arrived in ED. ll1 12:04 Jose Alejandro Palacios MD is Attending Physician. sp4 12:06 Triage completed. ll1 12:12 Asuncion James, RN is Primary Nurse. mb9 12:16 CT Head Brain wo Cont In Process Unspecified. EDMS 12:32 XRAY Chest (1 view) In Process Unspecified. EDMS 12:37 Placed in gown. Bed in low position. Call light in reach. Side rails up X 1. Client mb9 placed on continuous cardiac and pulse oximetry monitoring. NIBP monitoring applied. awake overnight monitor on. 12:37 No provider procedures requiring assistance completed. EKG done, by central services tech. reviewed mb9 by Jsoe Alejandro Palacios MD. Maintain EMS IV. Dressing intact. Good blood return noted. Site clean \T\ dry. Gauge \T\ site: 20g to left AC. 12:38 Alcohol Level Sent. mb9 12:38 CRP Sent. mb9 12:38 T4 Free Sent. mb9 12:38 TSH Sent. mb9 12:38 Basic Metabolic Panel Sent. mb9 12:38 CBC with Diff Sent. mb9 12:38 LFT's Sent. mb9 12:38 Magnesium Sent. mb9 12:39 NT PRO-BNP Sent. mb9 12:39 PT-INR Sent. mb9 12:39 Troponin HS Sent. mb9 14:09 Urine collected: clean catch specimen, clear. jl7 14:31 Caio Bhardwaj MD is Hospitalizing Provider. sp4 17:39 Patient admitted, IV remains in place. mb9 Administered Medications: 12:25 Drug: NS 0.9% IV 1000 ml Route: IV; Rate: 1 bolus; Site: left antecubital; mb9 18:17 Follow up: Response: No adverse reaction; IV Status: Completed infusion mb9 12:25 Drug: NS 0.9% IV 1000 ml Route: IV; Rate: 125 ml/hr; Site: left antecubital; mb9 18:18 Follow up: Response: No adverse reaction; IV Status: Completed infusion mb9 12:30 Drug: metoCLOPramide IVP 10 mg Route: IVP; Site: left antecubital; mb9 15:27 Follow up: Response: No adverse reaction mb9 Medication: 12:38 VIS not applicable for this client. mb9 Outcome: 14:32 Decision to Hospitalize by Provider. sp4 17:39 Admitted to Med/surg room 230, with chart, Report called to MARY ALICE Alexander mb9 17:39 Condition: stable 17:39 Instructed on the need for admit. 18:18 Patient left the ED. mb9 NIH Stroke Scale - NIH Stroke Score Date: 07/08/2023 Time: 14:23 Total Score = 0 10. Dysarthria (speech clarity - read or repeat words) - 0(Normal) 11. Extinction and Inattention (visual/tactile/auditory/spatial/personal) - 0(No abnormality) 1a. Level of Consciousness (LOC) - 0(Alert) 1b. Level of Consciousness (LOC) (Month \T\ Age) - 0(Both) 1c. LOC Commands (Open \T\ Closes Eyes/Waiter/Waitress Captain) - 0(Both) 2. Best Gaze (Lateral Gaze Paresis) - 0(Normal) 3. Visual Field Loss - 0(No visual loss) 4. Facial Palsy - 0(Normal) 5a. Left Arm: Motor (10-second hold) - 0(No drift) 5b. Right Arm: Motor (10-second hold) - 0(No drift) 6a. Left Leg: Motor (5-second hold - always test supine) - 0(No drift) 6b. Right Leg: Motor (5-second hold - always test supine) - 0(No drift) 7. Limb Ataxia (finger/nose \T\ heel/edmond - test with eyes open) - 0(Absent) 8. Sensory Loss (pinprick arms/legs/face) - 0(Normal) 9. Best Language: Aphasia (description/naming/reading) - 0(No aphasia) Initials: sp4 Signatures: Dispatcher [employer] Darlyn Flores RN RN jl7 Brett Hargrove RN RN ll1 Charito Truong RN RN ld1 Jacob, Asuncion Gore, RN RN mb9 Jose Alejandro Palacios MD MD sp4 Corrections: (The following items were deleted from the chart) 12:35 12:12 BP 125 / 76; mb9 mb9 15:29 14:35 Reassessment: No changes from previously documented assessment. mb9 mb9
[2023-07-08] MEDS ORDERED: ONDANSETRON 4 MG/2 ML VIAL IV PRN (15:22)
[2023-07-08] MEDS ORDERED: TRAMADOL HCL 50 MG TAB PO PRN (15:28)
[2023-07-08] MEDS ORDERED: ACETAMINOPHEN 325 MG TABLET PO PRN (15:28)
--- NOTE | 2023-07-08 15:35 | P.HP ---
Certification for Inpatient Patient admitted to: Observation With expected LOS: <2 Midnights Patient will require the following post-hospital care: None Practitioner: I am a practitioner with admitting privileges, knowledge of patient current condition, hospital course, and medical plan of care. Services: Services provided to patient in accordance with Admission requirements found in Title 42 Section 412.3 of the Code of Federal Regulations Patient History Date of Service: 07/08/23 Reason for admission: Syncope History of Present Illness: Patient is a 68-year-old female with a past medical history significant for nicotine dependence who presents with complaint of syncope and suspected seizures onset today. Patient reported that she has been having generalized weakness, fatigue and dizziness for the past 1 week. Patient spouse reported that patient was sitting down and resting her head on a bar stool and he asked patient if she was okay. As patient stood up patient became dizzy and had a syncopal episode. Patient was lowered to the floor by patient's spouse. Patient did not hit her head but lost consciousness briefly. Patient reported associated signs and symptoms of shortness of breath, palpitations and generalized malaise. Patient denies any other symptoms symptoms. Symptoms are aggravated or relieved by nothing. Patient was brought to the hospital for medical evaluation. Allergies No Known Allergies Allergy (Verified 07/08/23 21:33) - Past Medical/Surgical History Diabetic: No -: Nicotine Dependence Past Surgical History: Reviewed- Non-Contributory - Family History Family History: Reviewed- Non-Contributory - Social History Smoking Status: Current every day smoker Counseled patient to stop smoking for: less than 10 minutes Smoking therapy provided: Yes Patient receptive to therapy: No Alcohol use: Yes CD- Drugs: No Caffeine use: Yes Place of Residence: Home Review of Systems General: Weakness, Malaise, Other (Fatigue ) Eyes: Unremarkable ENT: Unremarkable Respiratory: Shortness of Breath Cardiovascular: Palpitations Gastrointestinal: Unremarkable Genitourinary: Unremarkable Musculoskeletal: Unremarkable Integumentary: Unremarkable Neurological: Weakness, Other (Dizziness ) Lymphatics: Unremarkable Physical Examination - Physical Exam General: Alert, In no apparent distress, Oriented x3, Cooperative HEENT: Atraumatic, PERRLA, Mucous membr. moist/pink, EOMI, Sclerae nonicteric Neck: Supple, 2+ carotid pulse no bruit, No LAD, Without JVD or thyroid abnormality Respiratory: Clear to auscultation bilaterally, Normal air movement Cardiovascular: No edema, Regular rate/rhythm, Normal S1 S2 Capillary refill: <2 Seconds Gastrointestinal: Normal bowel sounds, Non-distended, No tenderness Musculoskeletal: No clubbing, No contractures, No tenderness Integumentary: No rashes, No significant lesion Neurological: Normal speech, Normal tone, Normal affect Lymphatics: No axilla or inguinal lymphadenopathy - Studies Laboratory Data (last 24 hrs) 07/08/23 07/08/23 07/08/23 12:29 12:29 12:29 WBC 5.20 Hgb 14.3 Hct 41.4 Plt Count 294 PT 10.5 INR 0.95 Sodium 140 Potassium 3.4 L BUN 12 Creatinine 1.15 H Glucose 111 H Magnesium 2.1 Total Bilirubin 0.3 AST 17 ALT 31 Alkaline Phosphatase 60 Assessment and Plan - Plan --Syncope. Carotid Doppler pending to rule out any carotid artery stenosis. Echocardiogram pending to assess cardiac structures and functions. We will get some orthostatic blood pressure levels. Telemetry to monitor for any significant arrhythmia. -- Suspected seizures. MRI brain pending for further evaluation. Neurology consulted. Will await further recommendations. --Nicotine dependence. Patient counseled on tobacco cessation. Refuses nicotine patch. --Hypokalemia. Replete as needed. --CKD 3A. Stable. We will continue to monitor renal functions. --DVT prophylaxis with Lovenox subQ. Discharge Plan: Home Plan to discharge in: 48 Hours - Advance Directives Does patient have a Living Will: No Does patient have a Durable POA for Healthcare: No - Code Status/Comfort Care Code Status Assessed: Yes Physician Review: Patient Assessed, Agree with Above Assessment and Plan Critical Care: No
[2023-07-08 15:45] LABS: Barbiturates NEGATIVE (NEGATIVE); Benzodiazepines NEGATIVE (NEGATIVE); Cocaine NEGATIVE (NEGATIVE); METHAMPHETAM NEGATIVE (NEGATIVE); Methadone NEGATIVE (NEGATIVE); Opiates NEGATIVE (NEGATIVE); Phencyclidine NEGATIVE (NEGATIVE); THC Cannibis NEGATIVE (NEGATIVE)
[2023-07-08] MEDS ORDERED: POTASSIUM CL SA 10 MEQ TAB PO ONE (16:00)
[2023-07-08] MEDS: ENOXAPARIN 40 MG/0.4 ML SQ SCH (18:41)
[2023-07-08 19:35] LABS: Protime INR 1.03
[2023-07-08 19:53] LABS: Magnesium 2.3 mg/dL (1.6-2.4); Phosphorus 2.1 mg/dL (2.5-4.9); Thyroid Stimulating Hormone 1.97 uIU/mL (0.358-3.740)
[2023-07-08 22:57] VITALS: BMI 28.1
[2023-07-09 04:15] LABS: Absolute Lymphocytes (CBC) 2.4 K/uL (0.7-4.9); Hematocrit 38.3 % (36.0-45.0); Lymphocytes % 44.1 % (15.3-44.8); MCV 91.9 fL (80-100); MPV 7.5 fL (7.6-11.3); Platelets 263 thou/uL (152-406); RBC Red Blood Cell Count 4.17 M/uL (3.86-4.86)
[2023-07-09 04:27] LABS: Potassium 4.4 mEq/L (3.5-5.1)
[2023-07-09 05:29] LABS: Specific Gravity 1.005 (1.005-1.030); Urine Bacteria None Seen /HPF (<20); Urine Bilirubin NEGATIVE (Negative); Urine Blood Negative (Negative); Urine Clarity Clear (Clear); Urine Color Colorless (Yellow); Urine Glucose NEGATIVE (Negative); Urine Protein NEGATIVE (Negative); Urine RBC None Seen /HPF (None Seen); Urine Urobilinogen Normal (Normal)
[2023-07-09 07:43] VITALS: O2SAT 95
[2023-07-09] MEDS: ENOXAPARIN 40 MG/0.4 ML SQ SCH (07:44)
[2023-07-09] MEDS ORDERED: PNEUMOCOCCAL VACCINE 0.5 ML IMVAC ONE (08:00)
--- NOTE | 2023-07-09 08:23 | RAD REPORT ---
EXAM DESCRIPTION: US - CP - 07/09/2023 1:00 am CLINICAL HISTORY: Syncope Headache, drowsiness COMPARISON: No comparisons TECHNIQUE: Real-time sonographic evaluation of both carotid systems was performed. Doppler interroga tion was performed with waveform tracing bilaterally. FINDINGS: Normal high resistance waveforms are noted in both external carotid arteries. The common c arotid arteries and internal carotid arteries show normal low resistance waveforms. No significant plaque formation is seen. Peak systolic and end diastolic velocity values and the ICA/ CCA ratios are in the non-hemodynamically significant range. Antegrade flow seen in both vertebral arteries. IMPRESSION: No significant atherosclerotic changes noted. No evidence of a hemodynamically significant stenosis.
[2023-07-09 08:42] VITALS: BP 120/62; TEMP 97.3
--- NOTE | 2023-07-09 12:40 | RAD REPORT ---
EXAM DESCRIPTION: MRI - Brain W/Wo Cont - 07/09/2023 11:10 am CLINICAL HISTORY: Syncope, Suspected Seizures, R O MS Headache, drowsiness COMPARISON: Head Brain Wo Cont dated 07/08/2023 TECHNIQUE: Multi-sequence, multiplanar MR imaging of the brain was performed with contrast. FINDINGS: Moderate generalized brain atrophy. No intracranial hemorrhage, hydrocephalus, or extra-ax ial fluid collection.Mild to moderate nonenhancing T2 and FLAIR hyperintensities in the periventricul ar white matter is noted. No edema or shift of midline structures. No intracranial mass. DWI is negat dario for acute CVA. The midline structures are normally formed. No sub-callosal striations are seen.Mastoid air cells and paranasal sinuses are clear. Post-contrast images show no abnormal enhancement to suggest tumor or infection. IMPRESSION: Negative for acute CVA or other acute intracranial processes. T2 and FLAIR hyperintensities in the periventricular region, nonenhancing, as detailed favored to rep resent sequela of chronic microvascular ischemia.Although demyelination is a possibility, these lesio ns do not have the typical orientation of MS plaque.
--- NOTE | 2023-07-09 16:47 | EKG ---
Test Date: 2023-07-08 Test Time: 12:09:18 Chucking Lathe Operator: ROSAMARIA MEASUREMENT RESULTS: Intervals: Rate: 69 MA: 170 QRSD: 132 QT: 444 QTc: 475 Vinson: P: 61 MA: 170 QRS: -42 T: 98 INTERPRETIVE STATEMENTS: Normal sinus rhythm Left axis deviation Left bundle branch block Abnormal ECG Compared to ECG 04/22/2022 15:47:28 Left-axis deviation now present Electronically Signed On 07-09-23 16:43:36 CDT by Boom Infante
--- NOTE | 2023-07-10 06:59 | ECHO ---
HEIGHT: 5 ft 5 in WEIGHT: 169 lb 0 oz DATE OF STUDY: 07/09/[address]: Leandra West 2-DIMENSIONAL: YES M.MODE: YES DOPPLER: YES COLOR FLOW: YES TDS: PORTABLE: YES DEFINITY: BUBBLE STUDY: DIAGNOSIS: SYNCOPE CARDIAC HISTORY: CATHERIZATION: SURGERY: PROSTHETIC VALVE: PACEMAKER: MEASUREMENTS (cm) DIASTOLIC (NORMALS) SYSTOLIC (NORMALS) IVSd 0.8 (0.6-1.2) LA Diam 2.9 (1.9-4.0) LVEF 59% LVIDd 3.8 (3.5-5.7) LVIDs 2.6 (2.0-3.5) %FS 30% LVPWd 0.9 (0.6-1.2) Ao Diam 2.7 (2.0-3.7) 2 DIMENSIONAL ASSESSMENT: RIGHT ATRIUM: NORMAL LEFT ATRIUM: NORMAL RIGHT VENTRICLE: NORMAL LEFT VENTRICLE: NORMAL TRICUSPID VALVE: MILD TRICUSPID REGURGITATION MITRAL VALVE: MILD MITRAL REGURGITATION PULMONIC VALVE: NORMAL AORTIC VALVE: NORMAL PERICARDIAL EFFUSION: NONE AORTIC ROOT: NORMAL LEFT VENTRICULAR WALL MOTION: NORMAL DOPPLER/COLOR FLOW: SEE BELOW COMMENTS: 1. NORMAL LEFT VENTRICULAR EJECTION FRACTION 55-60% 2. NORMAL WALL MOTION 3. NORMAL DIASTOLIC FUNCTION 4. MILD MITRAL REGURGITATION 5. MILD TRICUSPID REGURGITATION TECHNOLOGIST: PRAMOD HARRIS
== END 2023-07-09 15:45 | disposition home or self-care (01) ==
LOC: ER 11:55 → ERHOLD 15:20 → INTOOBSV 15:20 → 2ND 17:37
PROVIDERS: ADMIT Hospitalist; ATTEND Hospitalist
DX: R55 Syncope and collapse (principal); R07.89 Other chest pain; R53.1 Weakness; R42 Dizziness and giddiness; R53.83 Other fatigue; E87.6 Hypokalemia; N18.31 Chronic kidney disease, stage 3a; F17.210 Nicotine dependence, cigarettes, uncomplicated; Z88.6 Allergy status to analgesic agent
CPT/HCPCS: 96361; 93005; 93306; 85025 ×2; 81001 ×2; 80048 ×2; 36415 ×2; 83735 ×2; 84100; 85610 ×2; 80061; 80076; 84443 ×2; 83036; 84484; 84439; 83880; 80307; 86140; 70450; 71045; 93880; 70553; 96374; 99285; 82077; A9577; J2765; J1650 ×2; J7030; G0378

== ENCOUNTER 2024-05-10 15:30 | Emergency (ER) | payer OTHER ==
--- NOTE | 2024-05-10 17:00 | RAD REPORT ---
EXAM DESCRIPTION: RAD - Forearm Right - 05/10/2024 4:47 pm CLINICAL HISTORY: Right arm pain FINDINGS: No fracture is seen.
--- NOTE | 2024-05-10 17:00 | RAD REPORT ---
EXAM DESCRIPTION: RAD - Hand Right 2 View - 05/10/2024 4:47 pm CLINICAL HISTORY: Right hand pain FINDINGS: Limited 2 view series. No fracture or dislocation seen
--- NOTE | 2024-05-10 17:11 | ER ---
Nurse's Notes [facility] Name: Rsoie Hairston Age: 69 yrs Sex: Female : 1955 Arrival Date: 05/10/2024 Time: 15:30 Bed 17 Private MD: Diagnosis: Contusion of right forearm Presentation: 05/10 15:50 Chief complaint: Patient states: Injured R forearm attempting to move a large potted [place] plant. Coronavirus screen: Vaccine status: Patient reports being unvaccinated. Ebola Screen: No symptoms or risks identified at this time. Initial Sepsis Screen: Does the patient meet any 2 criteria? No. Patient's initial sepsis screen is negative. Does the patient have a suspected source of infection? No. Patient's initial sepsis screen is negative. Risk Assessment: Do you want to hurt yourself or someone else? Patient reports no desire to harm self or others. Onset of symptoms was May 10, 2024. 15:50 Method Of Arrival: Ambulatory 15:50 Acuity: KATHRYN 4 Triage Assessment: 16:09 Injury Description: Crush injury sustained to right arm. le1 Historical: - Allergies: 15:51 Codeine; ph - PSHx: 15:51 section; ph - Immunization history:: Adult Immunizations unknown. - Infectious Disease History:: Denies. - Social history:: Smoking status: Patient reports the use of cigarette tobacco products, smokes one pack cigarettes per day. Screenin:08 [facility] ED Fall Risk Assessment (Adult) History of falling in the last 3 months, le1 including since admission No falls in past 3 months (0 pts) Confusion or Disorientation No (0 pts) Intoxicated or Sedated No (0 pts) Impaired Gait No (0 pts) Mobility Assist Device Used No (0 pt) Altered Elimination No (0 pt) Score/Fall Risk Level 0 - 2 = Low Risk Oriented to surroundings, Maintained a safe environment, Educated pt \T\ family on fall prevention, incl call for assistance when getting out of bed, Assessed \T\ reinforced patient's understanding of fall precautions, Hourly rounding (assess needs \T\ fall precautionary measures) done. Abuse screen: Denies threats or abuse. Nutritional screening: No deficits noted. Tuberculosis screening: No symptoms or risk factors identified. Assessment: 16:06 General: Appears in no apparent distress. comfortable, Behavior is calm, cooperative. le1 Pain: Complains of pain in right arm Pain currently is 7 out of 10 on a pain scale. Quality of pain is described as aching. Neuro: No deficits noted. Cardiovascular: No deficits noted. Respiratory: No deficits noted. GI: No deficits noted. : No deficits noted. Musculoskeletal: Swelling present in right arm Tenderness present in right arm Reports Pt states wheel barrel hit against R arm. She is able to bend at elbow, grasp with fingers, and bend her wrist. All with pain. 17:17 Reassessment: Pt refused last set of vitals.. le1 Vital Signs: 15:50 BP 146 / 77; Pulse 82; Resp 18; Temp 97.8; Pulse Ox 95% on R/A; Weight 69.85 kg; Height ph 5 ft. 4 in. ; Pain 5/10; 15:50 Body Mass Index 26.43 (69.85 kg, 162.56 cm) ph 15:50 Pain Scale: Adult ph ED Course: 15:31 Patient arrived in ED. im 15:34 [facility]C [facility] kb 15:34 Owen Velasquez MD is Attending Physician. kb 15:48 Jelani Aggarwal, MARY ALICE is Primary Nurse. le1 15:51 Triage completed. ph 15:52 Arm band placed on Patient placed in an exam room. ph 16:09 Patient has correct armband on for positive identification. Bed in low position. Call le1 light in reach. Side rails up X 1. Adult w/ patient. Provided Education on: Use call light for assistance. 16:49 Forearm Right XRAY In Process Unspecified. EDMS 16:49 Hand Right 2 View XRAY In Process Unspecified. EDMS 17:16 No provider procedures requiring assistance completed. Patient did not have IV access le1 during this emergency room visit. Administered Medications: No medications were administered Medication: 16:09 VIS not applicable for this client. le1 Outcome: 17:11 Discharge ordered by . kb 17:16 Discharged to home ambulatory, le1 17:16 Condition: stable 17:16 Discharge instructions given to patient, family, Instructed on discharge instructions, follow up and referral plans. Demonstrated understanding of instructions, follow-up care, 17:18 Patient left the ED. le1 Signatures: Dispatcher [employer] EDFrances Reddy FNP-C FNP-Ckb Nathaly Wylie, RN RN ph Janny Friend LaKendric, RN RN le1
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
[2024-05-10 17:26] VITALS: BP 146/77; TEMP 97.8; O2SAT 95
== END 2024-05-10 17:18 | disposition home or self-care (01) ==
LOC: ER 15:30
DX: S50.11XA Contusion of right forearm, initial encounter (principal); F17.210 Nicotine dependence, cigarettes, uncomplicated
CPT/HCPCS: 99282